=== PATIENT | male | born 1970 | race African-American/Black ===

== ENCOUNTER 2023-04-23 12:06 | Inpatient (IN) | payer OTHER, SELFPAY ==
[2023-04-23] VITALS (32 sets, daily range): BP systolic 133–194; BP diastolic 87–111; PULSE 75–98; RESP 10–20; TEMP 35.8–36.2; O2SAT 95–100; BMI 29.6
--- NOTE | ~2023-04-23 | XR_ITS ---
Clinical Indication: Chest pain AP and lateral views of the chest: Comparison: None Findings: The lungs are clear, without evidence of focal consolidation or pleural effusion. Cardiome diastinal silhouette is within normal limits. Bones and soft tissues are unremarkable. Impression: Normal chest. Reviewed, dictated and finalized at location . [employer] Impression: Normal chest.
--- NOTE | 2023-04-23 12:07 | ECG_ITS ---
Measurements Intervals [place] Rate: 81 P: 54 ID: [id number] QRS: -12 QRSD: 93 T: 24 QT: 375 QTc: 435 Interpretive Statements SINUS RHYTHM VOLTAGE CRITERIA FOR LVH BORDERLINE ECG NO PREVIOUS ECG AVAILABLE FOR COMPARISON Electronically Signed On 04-23-2023 12:54:47 [employer] by Luis Gauthier D.O.
--- NOTE | 2023-04-23 12:40 | ED.CHESTPAIN ---
HPI - Chest Pain General Chief Complaint: Chest Pain Stated Complaint: chest pain Time Seen by Provider: 04/23/23 12:35 Source: patient Limitations: no limitations History of Present Illness HPI narrative: This is a 53 year old who presents with complaint of chest pain that awoke him from his sleep between 6:30 and 6:45. He states his entire chest is tight. This has never happened before. No cardiac history. He denies SOB, nausea, vomiting, palpitations, fevers, cough, diaphoresis. He said it initially felt like gas. Describes it as a pressure/tightness that radiates across his chest initially and now down his ribs. 7/10 in severity and constant. It is not positional. He has never smoked. No family history of VA. Does not have diabetes. Was told he has high cholesterol but not on meds. No Hx of hypertension. Related Data Home Medications Medication Instructions Recorded Confirmed sildenafil 25 mg tablet (Viagra) 25 mg PO DAILY PRN Erectile 04/23/23 04/23/23 Dysfunction Allergies Allergy/AdvReac Type Severity Reaction Status Date / Time No Known Allergies Allergy Verified 04/23/23 12:41 [facility] Past Medical History Medical History (Updated 04/24/23 @ 20:01 by Nessa Smith MD) Erectile dysfunction On Viagra. Social History Social History (Updated 04/24/23 @ 00:26 by Cely Brooke APRN) Social History: Currently lives in home, daughter and granddaughter live with him. Surrogate decisionmaker: Jamel Chavarria, brother. Code status: Full code. Smoking status: Never smoker Alcohol intake: current Drinks per week: 14 Substance use: current Substance use type: marijuana Last use: 03-23-2023 Lack of Transportation: No Lack of Food: Never True Current Housing: I Have Housing Concerned About Future Housing: No Difficulty Paying Gas/Electric Bills: No Difficulty Paying for Meds: No Currently Unemployed: No Education: Associate Degree Difficulty w/ Childcare or Family Care: No Spiritual care concerns: No Exam Narrative: GENERAL: Well-appearing, well-nourished, and in no acute distress. HEAD: Normocephalic, atraumatic. EYES: EOMI, no photophobia. ENT: Nares clear, no rhinorrhea or epistaxis. Mucous membranes moist. NECK: Supple. CHEST: Clear to auscultation. No respiratory distress. HEART: Regular rate and rhythm. No murmur heard. Normal peripheral pulses +2 radially. ABDOMEN: Soft, nontender, nondistended. EXTREMITIES: Normal range of motion. No edema. SKIN: Warm, dry, no rash. NEURO: No focal deficits. Alert and oriented x3. PSYCH: Normal mood and affect. Course Vital Signs Vital signs: Vital Signs Temperature 96.5 F L 04/23/23 12:13 Pulse Rate 85 04/23/23 12:13 Respiratory Rate 18 04/23/23 12:13 Blood Pressure 145/96 H 04/23/23 12:13 Pulse Oximetry 98 04/23/23 12:13 Oxygen Delivery Room Air 04/23/23 12:13 Temperature 97.7 F 04/24/23 12:00 Pulse Rate 88 04/24/23 18:00 Respiratory Rate 16 04/24/23 17:07 Blood Pressure 117/83 04/24/23 17:07 Pulse Oximetry 94 04/24/23 17:07 Oxygen Delivery Room Air 04/24/23 16:00 MDM - Chest Pain MDM Narrative Medical decision making narrative: Patient presents with CP that awoke him from sleep between 6:30 and 6:45. NO associated symptoms and no history. EKG is normal. Initial troponin is very elevated. Aspriin ordered. Risk factors include: high cholesterol (though not on meds). Had been told blood pressure was borderline but not rajat hypertension. Not on meds for either HTN or HLD. He is not obese, is a never smoker, has no positive family history of CVD, no personal history of atherosclerotic disease, no prior VA/PCI/CABG, no prior CVA or TIA, and no history of peripheral artery disease. HEART score = (+1 age, +2 initial troponin >3x normal limit, +1 for 1 risk factor) = 4 which makes patient high risk with a 12 to 65% 30-day MACE Discussed patient
[2023-04-23] MEDS: ASPIRIN 81 MG CHEWABLE TABLET 324 MG PO (12:42)
--- NOTE | 2023-04-23 12:43 | PC.NURSE ---
Pt to XRAY via stretcher at this time.
[2023-04-23 12:57] LABS: Basophils Absolute Auto 0.1 K/mm3 (0.0-0.1); Basophils Percent Auto 0.6 % (0.2-1.2); Eosinophils Absolute Auto 0.3 K/mm3 (0-0.3); Eosinophils Percent Auto 3.4 % (0-4.4); Hematocrit 46.9 % (42.0-52.0); Hemoglobin 14.5 g/dL (14.0-18.0); Immature Granulocyte Absolute 0.04 K/mm3 (0.00-0.031); Immature Granulocyte Percent A 0.5 % (0-0.5); Lymphocytes Absolute Auto 2.14 K/mm3 (0.9-3.2); Lymphocytes Percent Auto 24.4 % (18.3-44.2); Mean Corpuscular HGB Conc 30.9 g/dl (32-36); Mean Corpuscular Hemoglobin 23.7 pg (26-34); Mean Corpuscular Volume 76.6 fl (80-100); Mean Platelet Volume 10.8 fl (7.4-10.4); Monocytes Absolute Auto 1.1 K/mm3 (0.1-0.6); Monocytes Percent Auto 12.9 % (2.6-8.5); Neutrophils Absolute Auto 5.1 K/mm3 (1.3-6.7); Neutrophils Percent Auto 58.2 % (45.5-73.1); Platelet Count Result 228 k/mm3 (150-375); Red Blood Count 6.12 M/mm3 (4.6-6.20); Red Cell Distribution Width 17.9 % (11.5-14.5); White Blood Count 8.8 K/mm3 (4.5-10.0)
[2023-04-23 13:08] LABS: Partial Thromboplastin Time 28.3 SECONDS (22.3-36.8)
[2023-04-23 13:09] LABS: Alanine Aminotransferase 34 U/L (6-50); Albumin Level 4.6 g/dL (3.5-5.1); Alkaline Phosphatase 64 U/L (38-126); Anion Gap 9 mmol/L (8-16); Aspartate Amino Transferase 35 U/L (17-59); Bilirubin,Total 0.7 mg/dL (0.2-1.3); Blood Urea Nitrogen 10 mg/dL (9-20); Calcium 9.8 mg/dL (8.4-10.2); Carbon Dioxide 26 mmol/L (22-30); Chloride 105 mmol/L (98-107); Estimated CRCL calculation 100 ml/min; Estimated Glomerular Filt Rate > 60; Glucose 103 mg/dL (65-110); Lipase 150 U/L (23-300); Sodium 140 mmol/L (137-145)
[2023-04-23 13:23] LABS: Troponin I 0.449 ng/mL (0.000-0.034)
[2023-04-23] MEDS: HEPARIN SODIUM 5,000 UNITS/ML VIAL 4000 UNITS IV PUSH (15:05)
[2023-04-23] MEDS: HEPARIN SOD/D5W 100 UNITS/ML 25,000 UNITS/250 ML BAG 8 UNITS IV CONT (15:06)
[2023-04-23 15:18] LABS: LDL Cholesterol Direct 100 mg/dL
[2023-04-23 15:48] LABS: HDL Direct 48 mg/dL; Triglycerides 329 mg/dL (<150)
--- NOTE | 2023-04-23 16:38 | PM.IMHP ---
H&P: HPI History of Present Illness Date/Time: 04/23/23 16:38 Chief Complaint: Chest Pain Narrative: 53 y/o M presents here with CP with no PMH. Patient reports that he was awoken from sleep due to midsternal chest pain this morning at 6:00 a.m. describes chest pain as midsternal/upper chest, 7/10, nonradiating, and felt like pressure/tightness. Pain is constant. No associated nausea, vomiting, diaphoresis, or shortness of breath. Pain would worsen with shifting positions or activity such as walking to the restroom. No alleviating factors. Tried Tums and Pepcid, no resolution of pain. After arrival to the ED, given full dose of aspirin with subsequent resolution of chest pain. denies any current chest pain or shortness of breath. Denies any medical history, questionable high cholesterol but is not treated for this. Currently hypertensive, 148/106. Denies any dizziness, blurred vision, or headaches. No family history of early heart disease. Review of Systems Review of Systems: All systems reviewed & are unremarkable except as noted in HPI and below PMFSH Past Medical History Medical History (Updated 04/24/23 @ 00:30 by Cely Brooke APRN) Erectile dysfunction On Viagra. Social History Social History (Updated 04/24/23 @ 00:26 by Cely Brooke APRN) Social History: Currently lives in home, daughter and granddaughter live with him. Surrogate decisionmaker: Jamel Chavarria, brother. Code status: Full code. Smoking status: Never smoker Alcohol intake: current Drinks per week: 14 Substance use: current Substance use type: marijuana Last use: 03-23-2023 Lack of Transportation: No Lack of Food: Never True Current Housing: I Have Housing Concerned About Future Housing: No Difficulty Paying Gas/Electric Bills: No Difficulty Paying for Meds: No Currently Unemployed: No Education: Associate Degree Difficulty w/ Childcare or Family Care: No Spiritual care concerns: No Meds Home Medications and Allergies Home Medications Medication Instructions Recorded Confirmed Type sildenafil 25 mg tablet (Viagra) 25 mg PO DAILY PRN Erectile 04/23/23 04/23/23 History Dysfunction Allergies Allergy/AdvReac Type Severity Reaction Status Date / Time No Known Allergies Allergy Verified 04/23/23 12:41 Vital Signs Vital Signs - 24 hr 11/09/23 12:13 04/23/23 12:32 04/23/23 12:32 Temperature 96.5 F L Pulse Rate 85 79 75 Respiratory Rate 18 18 Blood Pressure 145/96 H 151/109 H Pulse Oximetry 98 97 Oxygen Delivery Room Air 04/23/23 14:31 04/23/23 15:09 04/23/23 16:12 Temperature Pulse Rate 85 86 84 Respiratory Rate 18 15 20 Blood Pressure 148/106 H 148/106 H 146/106 H Pulse Oximetry 95 98 97 Oxygen Delivery Exam Const: General: comfortable and no acute distress HENMT: Face/Nose/Sinus: Normal nares present Mouth: Yes moist mucous membranes Eyes: General: appearance normal, both eyes and all related structures Sclera: sclerae normal Pupils: Equal, round and reactive pupils present Resp: Effort & Inspection: normal respiratory effort Auscultation: clear to auscultation bilaterally Cardio: Rate: regular rate Rhythm: regular rhythm Other: S1-S2 present without murmur, rub, ectopy GI: GI Palp: Yes Soft to palpation Auscultation: normal bowel sounds Skin: General skin exam: normal color and no rashes or lesions noted Wounds: no wounds Neuro: Speech: normal speech Motor exam (neuro): 5/5 motor strength present throughout Sensory Exam: normal sensation Other: A/Ox4 Extrem: General: normal to inspection Psych: Mental Status: mental status grossly normal Affect: normal affect Other: Good insight and judgment, pleasant. H&P: Results Labs Labs: Short CBC 04/23/23 Range/Units 12:41 WBC 8.8 (4.5-10.0) K/mm3 Hgb 14.5 (14.0-18.0) g/dL Hct 46.9 (42.0-52.0) % Plt Count 228 (150-3
--- NOTE | 2023-04-23 17:31 | PC.NURSE ---
This RN called dietary and ordered dinner tray for pt at this time.
[2023-04-23 17:57] LABS: Cholesterol 386 mg/dL (0-200)
--- NOTE | 2023-04-23 19:23 | PC.NURSE ---
This RN assumed care of patient. THis RN took patient report from RADHA Chow.
--- NOTE | 2023-04-23 20:38 | ECG_ITS ---
Measurements Intervals [place] Rate: 84 P: 29 CO: 188 QRS: -16 QRSD: 86 T: 26 QT: 380 QTc: 451 Interpretive Statements SINUS RHYTHM VOLTAGE CRITERIA FOR LVH BORDERLINE ECG COMPARED TO ECG 04/23/2023 12:10:46 NO SIGNIFICANT CHANGES Electronically Signed On 04-23-2023 18:47:37 SOCIAL MEDIA INTERN by Luis Gauthier D.O.
[2023-04-23 20:41] LABS: Partial Thromboplastin Time 57.1 SECONDS (22.3-36.8)
[2023-04-23] MEDS: HEPARIN SODIUM 5,000 UNITS/ML VIAL 2500 UNITS IV PUSH (21:12)
--- NOTE | 2023-04-23 21:47 | ADMGEN ---
This patient, Walter Chavarria, was admitted to IMU Room 207-01. Patient/family oriented to hospital policies and general routines including ID bracelet, bed and alarms, visiting hours, pain management, procedures, bathroom and other care routines, personal items, smoking policy, room service/diet, and visiting hours. Information on how to activate the Rapid Response Team has been discussed. Patient/Family are encouraged to report perceived risks to care and to ask questions if they do not understand what they are told or what they should do.
[2023-04-23] MEDS: ATORVASTATIN 40 MG TABLET 80 MG PO (23:30)
[2023-04-23] MEDS: carvediloL 1.56 MG TABLET PO (23:31)
[2023-04-24] VITALS (24 sets, daily range): BP systolic 117–140; BP diastolic 82–98; PULSE 77–91; RESP 12–18; TEMP 36.1–36.6; O2SAT 93–99
[2023-04-24 03:06] LABS: Basophils Absolute Auto 0.1 K/mm3 (0.0-0.1); Basophils Percent Auto 0.6 % (0.2-1.2); Eosinophils Absolute Auto 0.3 K/mm3 (0-0.3); Eosinophils Percent Auto 3.3 % (0-4.4); Hematocrit 46.3 % (42.0-52.0); Hemoglobin 14.4 g/dL (14.0-18.0); Immature Granulocyte Absolute 0.06 K/mm3 (0.00-0.031); Immature Granulocyte Percent A 0.6 % (0-0.5); Lymphocytes Absolute Auto 3.09 K/mm3 (0.9-3.2); Lymphocytes Percent Auto 30.6 % (18.3-44.2); Mean Corpuscular HGB Conc 31.1 g/dl (32-36); Mean Corpuscular Hemoglobin 23.8 pg (26-34); Mean Corpuscular Volume 76.5 fl (80-100); Mean Platelet Volume 10.3 fl (7.4-10.4); Monocytes Absolute Auto 1.4 K/mm3 (0.1-0.6); Monocytes Percent Auto 13.4 % (2.6-8.5); Neutrophils Absolute Auto 5.2 K/mm3 (1.3-6.7); Neutrophils Percent Auto 51.5 % (45.5-73.1); Platelet Count Result 238 k/mm3 (150-375); Red Blood Count 6.05 M/mm3 (4.6-6.20); Red Cell Distribution Width 17.6 % (11.5-14.5); White Blood Count 10.1 K/mm3 (4.5-10.0)
[2023-04-24 03:18] LABS: Alanine Aminotransferase 31 U/L (6-50); Albumin Level 4.1 g/dL (3.5-5.1); Alkaline Phosphatase 66 U/L (38-126); Anion Gap 6 mmol/L (8-16); Aspartate Amino Transferase 36 U/L (17-59); Bilirubin,Total 0.7 mg/dL (0.2-1.3); Blood Urea Nitrogen 11 mg/dL (9-20); Calcium 9.5 mg/dL (8.4-10.2); Carbon Dioxide 28 mmol/L (22-30); Chloride 104 mmol/L (98-107); Estimated CRCL calculation 89 ml/min; Estimated Glomerular Filt Rate > 60; Glucose 114 mg/dL (65-110); Potassium 3.5 mmol/L (3.4-5.0); Sodium 138 mmol/L (137-145)
[2023-04-24 03:23] LABS: Partial Thromboplastin Time 83.2 SECONDS (22.3-36.8)
[2023-04-24] MEDS: carvediloL 6.25 MG TABLET PO (09:12)
[2023-04-24] MEDS: ASPIRIN 81 MG CHEWABLE TABLET PO (09:13)
[2023-04-24 09:40] LABS: Partial Thromboplastin Time 68.1 SECONDS (22.3-36.8)
[2023-04-24] MEDS: HEPARIN SODIUM 5,000 UNITS/ML VIAL 2500 UNITS IV PUSH (10:49)
--- NOTE | 2023-04-24 11:15 | PM.CNCAR ---
Assessment and Plan Assessment and plan (1) NSTEMI (non-ST elevated myocardial infarction): Code(s): I21.4 - Non-ST elevation (NSTEMI) myocardial infarction Status: Acute Plan This is a 53-year-old man without prior history of heart disease he has really minimal if any coronary risk factors he states that his physician has told him that his blood pressure and cholesterol may be slightly elevated but not to worry medical treatment of any of this was recommended he now presents with acute coronary syndrome and troponin levels indicating non ST-elevation [place]. Recommended proceeding with coronary angiography today. The procedure its risks and details as well as alternatives of conservative medical treatment were explained to the patient he understands all of this and is agreeable with this plan. Lion Mcleod MD [facility] History of Present Illness History of Present Illness Consult date/time: 04/24/23 11:15 Reason For Visit: nstemi Narrative: This is a very pleasant 53-year-old man I am seeing at the request of the hospitalist because of non ST elevation RI. The patient is unknown to me prior to this consultation. He reports really a lack of any prior medical problems of significance and has been enjoying rather good health. He stated that yesterday or in the evening before yesterday he started to experience some chest pain that raised concern on his part. He was awakened from sleep and had a central pressure likes chest pain that at times radiated to the left and the right side of the chest. It did not radiate any other location in his body there was no associated diaphoresis nausea vomiting or emesis. He tried to take some Tums for for this thinking he had a problem with dyspepsia he had no relief and eventually came to the emergency room for evaluation. His electrocardiograms in the emergency room showed sinus rhythm without any significant ST segment elevation or depression. His troponin levels were sampled were slightly elevated he then was heparinized and admitted to the hospital. He says that since yesterday afternoon being in the hospital he has generally felt well but he has some very mild waxing and waning of central heaviness in his chest he is currently not having any of this. His troponin levels jeri significantly to 1.9 and I have been asked to see him in consultation in that setting. He has been given aspirin beta-blockers and statins and offers no other complaints. Review of Systems Constitutional: Constitutional: Reports no additional constitutional complaints Eyes: Eyes: Reports no additional eye complaints ENT: Reports system reviewed and no additional complaints, except as documented Cardiovascular: Cardiovascular: Reports as per HPI Respiratory: Respiratory: Reports no additional respiratory complaints Gastrointestinal: Gastrointestinal: Reports no additional gastrointestinal complaints Musculoskeletal: Musculoskeletal: Reports no additional musculoskeletal complaints Integumentary/Breasts: Skin/Breast: Reports system reviewed and no additional complaints, except as docu Neurologic: Reports system reviewed and no additional complaints, except as documented Endocrine: Endocrine: Reports no additional endocrine complaints Hematologic/Lymphatic: Hematologic/Lymphatic: Reports no additional hematologic/lymphatic complaints Allergic/Immunologic: Allergic/Immunologic: Reports no additional allergic/immunologic complaints PMFSH Past Medical History Medical History (Updated 04/24/23 @ 00:30 by Cely Brooke APRN) Erectile dysfunction On Viagra. Social History Social History (Updated 04/24/23 @ 00:26 by Cely Brooke APRN) Social History: Currently lives in home, daughter and granddaughter live with him. Surrogate decisionmaker: Jamel Chavarria, brother. Code status: Full code. Smoking status: Never smoker Alcohol intake: current Drinks per week: 14 Substance use:
--- NOTE | 2023-04-24 13:40 | WPDMODSED ---
Moderate Sedation Note-Pt Data Patient Data Diagnosis: non ST-elevation [place] Present Complaint: intermittent chest pain Procedure to be performed/Plan: left heart catheterization Allergies Allergy/AdvReac Type Severity Reaction Status Date / Time No Known Allergies Allergy Verified 04/23/23 12:41 Home Medications Medication Instructions Recorded Confirmed Type sildenafil 25 mg tablet (Viagra) 25 mg PO DAILY PRN Erectile 04/23/23 04/23/23 History Dysfunction Current Medications: Active Medications Acetaminophen (Acetaminophen 325 Mg Tablet) 650 mg PO Q4H PRN PRN Reason: Mild Pain (1-3) Al Hydrox/Mg Hydrox/Simethicone (Mag Hydrox/Al Hydrox/Simeth 30 Ml Udc) 30 ml PO Q6H PRN PRN Reason: Indigestion Aspirin (Aspirin 81 Mg Chewable Tablet) 81 mg PO DAILY@0800 [facility] Last Admin: 04/24/23 09:13 Dose: 81 mg Atorvastatin Calcium (Atorvastatin 40 Mg Tablet) 80 mg PO HS [facility] Last Admin: 04/23/23 23:30 Dose: 80 mg Carvedilol (Carvedilol 6.25 Mg Tablet) 6.25 mg PO Q12HR [facility] Last Admin: 04/24/23 09:12 Dose: 6.25 mg Heparin Sodium (Porcine) (Heparin Sodium 5,000 Units/Ml Vial) 4,000 units IV PUSH PRN PRN PRN Reason: aPTT less than 55 seconds Last Admin: 04/23/23 15:05 Dose: 4,000 units Heparin Sodium (Porcine) (Heparin Sodium 5,000 Units/Ml Vial) 2,500 units IV PUSH PRN PRN PRN Reason: aPTT 55 - 70 seconds Last Admin: 04/24/23 10:49 Dose: 2,500 units Heparin Sodium/Dextrose (Heparin Sodium/D5w 100 Units/Ml) 25,000 units in 250 mls @ 10 mls/hr IV CONT .Q24H JAMEL; Protocol Last Titration: 04/24/23 10:49 Dose: 1,000 units/hr, 10 mls/hr Nitroglycerin (Nitroglycerin Sl 0.4 Mg Tablet) 0.4 mg SUBLINGUAL Q5MIN PRN PRN Reason: Chest Pain Ondansetron HCl (Ondansetron Inj 4 Mg/2 Ml Vial) 4 mg IV PUSH Q6H PRN PRN Reason: Nausea And Vomiting Sedation/Anesthesia: No previous sedation/anesthesia problems (including family history). [facility] Past Medical History Medical History (Updated 04/24/23 @ 00:30 by Cely Brooke APRN) Erectile dysfunction On Viagra. Social History Social History (Updated 04/24/23 @ 00:26 by Cely Brooke APRN) Social History: Currently lives in home, daughter and granddaughter live with him. Surrogate decisionmaker: Jamel Chavarria, brother. Code status: Full code. Smoking status: Never smoker Alcohol intake: current Drinks per week: 14 Substance use: current Substance use type: marijuana Last use: 03-23-2023 Lack of Transportation: No Lack of Food: Never True Current Housing: I Have Housing Concerned About Future Housing: No Difficulty Paying Gas/Electric Bills: No Difficulty Paying for Meds: No Currently Unemployed: No Education: Associate Degree Difficulty w/ Childcare or Family Care: No Spiritual care concerns: No Mod Sed Physical Exam Physical Exam Pre Procedural Exam: Normal: Appearance, Neck, Throat, Airway, Lungs, Heart Size, Heart Rate, Heart Rhythm, Neuro Exam and Extremities Hours since solid foods: 12 Hours since liquid intake: 12 Mallampati Classification: class II Internal Medicine - PN: Obj Da Vital Signs Vital Signs: Vital Signs - 24 hr 04/23/23 14:31 04/23/23 15:09 04/23/23 16:12 Temperature Pulse Rate 85 86 84 Respiratory Rate 18 15 20 Blood Pressure 148/106 H 148/106 H 146/106 H Pulse Oximetry 95 98 97 Oxygen Delivery 04/23/23 17:04 04/23/23 17:37 04/23/23 14:09 Temperature Pulse Rate 92 96 88 Respiratory Rate 17 15 16 Blood Pressure 148/102 H 133/102 H Pulse Oximetry 97 100 97 Oxygen Delivery 04/23/23 15:22 04/23/23 15:30 04/23/23 15:45 Temperature Pulse Rate 87 79 88 Respiratory Rate 17 15 14 Blood Pressure Pulse Oximetry 100 97 98 Oxygen Delivery 04/23/23 17:48 04/23/23 18:00 04/23/23 18:15 Temperature Pulse Rate 87 92 89 Respiratory Rate 17 18 16 Blood Pressure Pulse Oximetry 98 100 98 Oxygen Delivery
--- NOTE | 2023-04-24 14:09 | P.PCNCC_ITS ---
Cardiac Cath Procedure Note Date of procedure:: 04/24/23 Performing physician:: Lion Mcleod MD Indication:: acute coronary syndrome Brief clinical history:: this is a 53-year-old man without previous cardiac history who experienced an episode of chest tightness yesterday he came to the hospital for evaluation his electrocardiogram was essentially unremarkable his troponin levels however jeri moderately to 1.9 prompting recommendation for angiography today. He reports a history of modestly elevated blood pressure and mildly elevated cholesterol. He is not diabetic and is a lifelong nonsmoker Procedure Procedure performed:: left ventriculography coronary angiography Angio-Seal to right femoral artery Sedation/Medication given:: fentanyl 50 mg Versed 2 mg case start time Access site:: right femoral artery Estimated blood loss:: 25 cc Procedure note:: patient was brought to the cardiac catheterization lab in postabsorptive state where the right femoral triangle was prepared and draped in the usual fashion. Anesthesia was provided with 1% lidocaine infiltrated locally. Using the modified Seldinger technique a 5 [place] sheath was placed into the right common femoral artery after this left heart catheterization was carried out. I used a 5 [place] angled pigtail catheterization her to measure left-sided hemodynamics and to inject LV g in the 30 degree CHOI projection. Following this I used a 5 [place] FL4 catheter to engage and inject the left coronary artery in multiple projections. Lastly a 5 [place] JR4 catheter was used to engage inject the right coronary artery in orthogonal projections. The femoral artery was then studied with an angiogram through the sheath. A 6 [place] Angio-Seal device was deployed with a good hemostatic result. He tolerated the procedure well there were no apparent complications he left the director of cardiac cath lab with no evidence of groin hematoma. Findings:: Hemodynamics: Central aortic pressure is 122 over 76 left ventricle 122/0 end-diastolic 10 there is no gradient across the aortic upon pullback. Left ventricle: The LV is normal in size. The tiny apical segment of the LV is hypodynamic the remainder of the LV is normal in appearance and contracts well without any other wall motion abnormalities ejection fraction is 60% by visual estimation the left main coronary artery is unremarkable and widely patent the left anterior descending is a large to medium caliber artery extending down to the apex the LAD and its branches are smooth and angiographically normal in appearance the circumflex is a medium caliber giving rise to the circ marginal branches. The circumflex system is also smooth and angiographically free of disease. The right coronary artery is medium in caliber dominant to the posterior circulation the right coronary artery is smooth and angiographically free of disease. Conclusion:: 1. Right coronary dominant circulation with no angiographic abnormalities 2. very small amount of apical hypokinesia with overall normal ejection fraction Lion Mcleod MD [facility]
--- NOTE | 2023-04-24 14:14 | PM.PNCARD ---
Progress Note: A&P Assessment and Plan (1) NSTEMI (non-ST elevated myocardial infarction): Code(s): I21.4 - Non-ST elevation (NSTEMI) myocardial infarction Status: Acute Plan 53-year-old man with episode of chest pain, modest system moderate troponin rise but catheterization demonstrating angiographically nondiseased coronary arteries. He does have apical akinesia on his left ventricle therefore the most likely diagnosis appears to be coronary spasm event. I will discontinue his aspirin and beta-michael and start a modest dose of amlodipine for presumptive diagnosis of coronary spasm. I would go ahead and leave him on the atorvastatin as his cholesterol apparently is rather high with does not have atherosclerotic disease. Lion Mcleod MD [facility] Subjective Date/time seen: date of service:04/24/23 14:14 Interval history: 53-year-old man with: Episode of chest pain moderate rise in troponin levels. Presumptive diagnosis of ACS / non ST elevation CT. Left heart catheterization done a short time ago demonstrates no angiographic evidence of coronary artery disease. There is a small region of hypokinesia / akinesia at the apex ventricle. Overall ejection fraction is normal. Most likely diagnosis therefore is coronary spasm since he did have a event clinically, with troponin level elevation and a wall motion abnormality but without any angiographic evidence of coronary artery disease. Will treat this with calcium channel michael therapy. Exam Const: General: comfortable and no acute distress HENMT: Mouth: Yes moist mucous membranes Eyes: Sclera: sclerae normal Neck: Neck: supple and no JVD Other: Carotid arteries unremarkable bilateral Resp: Effort & Inspection: normal respiratory effort Auscultation: clear to auscultation bilaterally Cardio: Rate: regular rate Rhythm: regular rhythm Other: no murmur no gallop GI: GI Palp: Yes Soft to palpation Auscultation: normal bowel sounds Skin: General skin exam: normal color Neuro: Other: alert and oriented x3 Extrem: Other: unremarkable normal pulses, no edema Objective Data Vital Signs Vital Signs: Vital Signs - 24 hr 04/23/23 14:31 04/23/23 15:09 04/23/23 16:12 Temperature Pulse Rate 85 86 84 Respiratory Rate 18 15 20 Blood Pressure 148/106 H 148/106 H 146/106 H Pulse Oximetry 95 98 97 Oxygen Delivery 04/23/23 17:04 04/23/23 17:37 04/23/23 15:22 Temperature Pulse Rate 92 96 87 Respiratory Rate 17 15 17 Blood Pressure 148/102 H 133/102 H Pulse Oximetry 97 100 100 Oxygen Delivery 04/23/23 15:30 04/23/23 15:45 04/23/23 17:48 Temperature Pulse Rate 79 88 87 Respiratory Rate 15 14 17 Blood Pressure Pulse Oximetry 97 98 98 Oxygen Delivery 04/23/23 18:00 04/23/23 18:15 04/23/23 18:16 Temperature Pulse Rate 92 89 95 Respiratory Rate 18 16 19 Blood Pressure 153/111 H Pulse Oximetry 100 98 98 Oxygen Delivery 04/23/23 18:30 04/23/23 18:45 04/23/23 19:00 Temperature Pulse Rate 89 98 98 Respiratory Rate 12 15 16 Blood Pressure Pulse Oximetry 99 98 97 Oxygen Delivery 04/23/23 19:01 04/23/23 19:15 04/23/23 19:30 Temperature Pulse Rate 98 95 87 Respiratory Rate 14 12 10 L Blood Pressure 194/102 H Pulse Oximetry 98 98 99 Oxygen Delivery 04/23/23 19:45 04/23/23 19:46 04/23/23 20:00 Temperature Pulse Rate 90 86 92 Respiratory Rate 18 20 14 Blood Pressure 158/105 H Pulse Oximetry 99 99 Oxygen Delivery 04/23/23 20:15 04/23/23 21:32 04/23/23 21:58 Temperature 36.2 C L Pulse Rate 80 84 81 Respiratory Rate 13 16 Blood Pressure 149/98 H 152/100 H Pulse Oximetry 97 99 99 Oxygen Delivery 04/23/23 22:00 04/23/23 22:00 04/23/23 23:28 Temperature 36.1 C L Pulse Rate 88 91 Respiratory Rate 16 Blood Pressure 135/87 Pulse Oximetry 100 Oxygen Delivery Room Air 04/23/23 23:31 04/24/23
[2023-04-24] MEDS: SODIUM CHLORIDE 0.9% IV 1,000 ML 125 ML IV CONT (15:32)
--- NOTE | 2023-04-24 17:25 | PM.IMPN ---
Progress Note: A&P Assessment and Plan (1) NSTEMI (non-ST elevated myocardial infarction): Code(s): I21.4 - Non-ST elevation (NSTEMI) myocardial infarction Status: Acute Plan Problem List 1. NSTEMI EKG SINUS RHYTHM VOLTAGE CRITERIA FOR LVH BORDERLINE ECG NO PREVIOUS ECG AVAILABLE FOR COMPARISON Repeat EKG post-second trop SINUS RHYTHM VOLTAGE CRITERIA FOR LVH BORDERLINE ECG COMPARED TO ECG 04/23/2023 12:10:46 NO SIGNIFICANT CHANGES CXR: Normal chest. trops: 0.449 -> 1.130 -> 1.760 Heparin gtt, monitor coags NPO until procedure Start daily aspirin 81 mg, 324 mg today SL nitro prn Zofran p.r.n. GI cocktail p.r.n. monitor daily labs start atorvastatin 80 mg PO daily. lipid panel -triglycerides 329, cholesterol 386. Normal LDL and HDL start carvedilol 6.25 mg BID, currently hypertensive echo ordered for cardiac cath today Cardiology on board Home Meds/Chronic Conditions - ED: hold Viagra Diet: NPO GI Prophylaxis: GI cocktail prn DVT Prophylaxis: SCDs, heparin gtt Lines: pIV Code Status: Full Code Subjective Date/time seen: 04/24/23 17:25 Interval history: 53-year-old man with: Episode of chest pain moderate rise in troponin levels. Presumptive diagnosis of ACS / non ST elevation [place]. Left heart catheterization done a short time ago demonstrates no angiographic evidence of coronary artery disease. There is a small region of hypokinesia / akinesia at the apex ventricle. Overall ejection fraction is normal. Most likely diagnosis therefore is coronary spasm since he did have a event clinically, with troponin level elevation and a wall motion abnormality but without any angiographic evidence of coronary artery disease. Will treat this with calcium channel michael therapy. For cardiac cath today Review of Systems Review of Systems: All systems reviewed & are unremarkable except as noted in HPI and below Exam Const: General: comfortable and no acute distress HENMT: Face/Nose/Sinus: Normal nares present Mouth: Yes moist mucous membranes Eyes: General: appearance normal, both eyes and all related structures Sclera: sclerae normal Pupils: Equal, round and reactive pupils present Resp: Effort & Inspection: normal respiratory effort Auscultation: clear to auscultation bilaterally Cardio: Rate: regular rate Rhythm: regular rhythm Other: S1-S2 present without murmur, rub, ectopy GI: Auscultation: normal bowel sounds Skin: General skin exam: normal color and no rashes or lesions noted Wounds: no wounds Neuro: Cranial nerves: Yes Equal, round and reactive pupils present Speech: normal speech Motor exam (neuro): 5/5 motor strength present throughout Sensory Exam: normal sensation Other: A/Ox4 Extrem: General: normal to inspection Psych: Mental Status: mental status grossly normal Affect: normal affect Other: Good insight and judgment, pleasant. Objective Data Vital Signs Vital Signs: Vital Signs - 24 hr 04/23/23 17:37 04/23/23 17:48 04/23/23 18:00 Temperature Pulse Rate 96 87 92 Respiratory Rate 15 17 18 Blood Pressure 133/102 H Pulse Oximetry 100 98 100 Oxygen Delivery 04/23/23 18:15 04/23/23 18:16 04/23/23 18:30 Temperature Pulse Rate 89 95 89 Respiratory Rate 16 19 12 Blood Pressure 153/111 H Pulse Oximetry 98 98 99 Oxygen Delivery 04/23/23 18:45 04/23/23 19:00 04/23/23 19:01 Temperature Pulse Rate 98 98 98 Respiratory Rate 15 16 14 Blood Pressure 194/102 H Pulse Oximetry 98 97 98 Oxygen Delivery 04/23/23 19:15 04/23/23 19:30 04/23/23 19:45 Temperature Pulse Rate 95 87 90 Respiratory Rate 12 10 L 18 Blood Pressure Pulse Oximetry 98 99 Oxygen Delivery 04/23/23 19:46 04/23/23 20:00 04/23/23 20:15 Temperature Pulse Rate 86 92 80 Respiratory Rate 20 14 13 Blood Pressure 158/105 H Pulse Oximetry 99 99 97 Oxygen Delivery 04/23/23
[2023-04-24] MEDS: ATORVASTATIN 40 MG TABLET 80 MG PO (21:14)
[2023-04-25] VITALS: PULSE 78; PULSE 80; RESP 18; O2SAT 98
[2023-04-25 02:00] VITALS: PULSE 78
[2023-04-25 03:55] VITALS: BP 131/82; PULSE 78; RESP 18; TEMP 36.4; O2SAT 99
[2023-04-25 04:00] VITALS: PULSE 78; PULSE 80; RESP 18; O2SAT 99
[2023-04-25 04:31] LABS: Basophils Percent Auto 0.5 % (0.2-1.2); Eosinophils Absolute Auto 0.3 K/mm3 (0-0.3); Hematocrit 45.3 % (42.0-52.0); Hemoglobin 14.3 g/dL (14.0-18.0); Immature Granulocyte Absolute 0.03 K/mm3 (0.00-0.031); Immature Granulocyte Percent A 0.3 % (0-0.5); Lymphocytes Percent Auto 25.1 % (18.3-44.2); Mean Corpuscular HGB Conc 31.6 g/dl (32-36); Mean Corpuscular Hemoglobin 24.1 pg (26-34); Mean Corpuscular Volume 76.4 fl (80-100); Mean Platelet Volume 10.7 fl (7.4-10.4); Monocytes Absolute Auto 1.2 K/mm3 (0.1-0.6); Monocytes Percent Auto 13.4 % (2.6-8.5); Neutrophils Absolute Auto 5.1 K/mm3 (1.3-6.7); Neutrophils Percent Auto 57.7 % (45.5-73.1); Platelet Count Result 235 k/mm3 (150-375); Red Blood Count 5.93 M/mm3 (4.6-6.20); Red Cell Distribution Width 17.2 % (11.5-14.5); White Blood Count 8.8 K/mm3 (4.5-10.0)
[2023-04-25 04:43] LABS: Alanine Aminotransferase 28 U/L (6-50); Albumin Level 3.7 g/dL (3.5-5.1); Alkaline Phosphatase 57 U/L (38-126); Anion Gap 5 mmol/L (8-16); Aspartate Amino Transferase 29 U/L (17-59); Bilirubin,Total 0.7 mg/dL (0.2-1.3); Blood Urea Nitrogen 9 mg/dL (9-20); Calcium 8.7 mg/dL (8.4-10.2); Carbon Dioxide 24 mmol/L (22-30); Chloride 108 mmol/L (98-107); Estimated CRCL calculation 89 ml/min; Estimated Glomerular Filt Rate > 60; Glucose 107 mg/dL (65-110); Potassium 3.9 mmol/L (3.4-5.0); Sodium 137 mmol/L (137-145)
[2023-04-25 05:41] VITALS: PULSE 82
[2023-04-25 07:54] VITALS: BP 120/91; PULSE 89; RESP 18; TEMP 36.5; O2SAT 97
[2023-04-25] MEDS: amLODIPine BESYLATE 5 MG TABLET PO (09:20)
--- NOTE | 2023-04-25 10:33 | PM.DS ---
DS: Admitting Diagnosis Discharge Date 04/25/23 Admitting Diagnosis Chest pain DS: Discharge Diagnosis Discharge Diagnosis (1) NSTEMI (non-ST elevated myocardial infarction): Code(s): I21.4 - Non-ST elevation (NSTEMI) myocardial infarction Status: Acute DS: Summary Hospital Course Hospital Course: #. NSTEMI: trops: 0.449 -> 1.130 -> 1.760 Started on heparin gtt, for protocol Started on aspirin and statin Lipid panel -triglycerides 329, cholesterol 386.? Normal LDL and HDL Cardiac catheterization: 04/24/2023: Angiographically normal coronary arteries. Mild apical akinesis she on left ventricle noted. Suspected coronary vasospasm. Added on calcium channel michael. Follow-up with cardiology Time Spent with Patient Time attestation: Total time spent providing and/or coordinating discharge services: 35 minutes Exam Narrative: GENERAL: The patient is well developed, not in acute distress HEENT: Nonicteric sclerae, PERRLA, EOMI. Oropharynx clear. Moist mucous membranes. Conjunctivae appear well perfused. CHEST: Chest wall is nontender. HEART: Regular rate and rhythm without murmur, rubs, or gallops LUNGS: Clear to auscultation bilaterally. no respiratory distress ABDOMEN: Soft, positive bowel sounds, non-tender, no organomegaly. SKIN: No rash, no excessive bruising, petechiae, or purpura. NEUROLOGIC: Cranial nerves II-XII intact, alert and oriented x 3, no gross motor deficits EXTREMITIES: no edema, cyanosis or clubbing DS: Data Data Completed and Pending Labs on day of discharge: Labs from last 24 hours 04/25/23 04:20 WBC 8.8 RBC 5.93 Hgb 14.3 Hct 45.3 MCV 76.4 L MCH 24.1 L MCHC 31.6 L RDW 17.2 H Plt Count 235 MPV 10.7 H Immature Gran % (Auto) 0.3 Neut % (Auto) 57.7 Lymph % (Auto) 25.1 [place] % (Auto) 13.4 H Eos % (Auto) 3.0 Baso % (Auto) 0.5 Lymph # (Auto) 2.20 [place] # (Auto) 1.2 H Eos # (Auto) 0.3 Baso # (Auto) 0.0 Abs Immat Gran (auto) 0.03 Absolute Neuts (auto) 5.1 Absolute Nucleated RBC 0.0 Nucleated RBC % 0.0 Sodium 137 Potassium 3.9 Chloride 108 H Carbon Dioxide 24 Anion Gap 5 L BUN 9 Creatinine 0.80 Estim Creat Clear Calc 89 Estimated GFR > 60 Glucose 107 Calcium 8.7 Total Bilirubin 0.7 AST 29 ALT 28 Alkaline Phosphatase 57 Total Protein 7.0 Albumin 3.7 Procedures/Treatments: Cardiac Cath Procedure Note Date of procedure:: 04/24/23 Performing physician:: Lion Mcleod MD Indication:: ?acute coronary syndrome Brief clinical history:: ?this is a 53-year-old man without previous cardiac history who experienced an episode of chest tightness yesterday he came to the hospital for evaluation his electrocardiogram was essentially unremarkable his troponin levels however jeri moderately to 1.9 prompting recommendation for angiography today.? He reports a history of modestly elevated blood pressure and mildly elevated cholesterol.? He is not diabetic and is a lifelong nonsmoker Procedure Procedure performed:: ?left ventriculography ?coronary angiography ?Angio-Seal to right femoral artery Sedation/Medication given:: ?fentanyl 50 mg ?Versed 2 mg ?case start time Access site:: ?right femoral artery Estimated blood loss:: ?25 cc Procedure note:: ?patient was brought to the cardiac catheterization lab in postabsorptive state where the right femoral triangle was prepared and draped in the usual fashion.? Anesthesia was provided with 1% lidocaine infiltrated locally.? Using the modified Seldinger technique a 5 Qatari sheath was placed into the right common femoral artery after this left heart catheterization was carried out.? I used a 5 Qatari angled pigtail catheterization her to measure left-sided hemodynamics and to inject LV g in the 30 degree CHOI projection.? Following this I used a 5 Q[place]ari FL4 catheter to engage and inject the left coronary artery in multiple projections.? Lastly a 5 Q[place]ari JR4 catheter was used to e
--- NOTE | 2023-04-25 10:36 | PM.PNCARD ---
Progress Note: A&P Assessment and Plan (1) NSTEMI (non-ST elevated myocardial infarction): Code(s): I21.4 - Non-ST elevation (NSTEMI) myocardial infarction Status: Acute Assessment and Plan: 53-year-old man with episode of chest pain, moderate troponin rise but catheterization demonstrating angiographically nondiseased coronary arteries.? He does have apical akinesia on his left ventricle therefore the most likely diagnosis appears to be coronary spasm event.? Discontinued his aspirin and beta-michael and started a modest dose of amlodipine for presumptive diagnosis of coronary spasm.? Continue atorvastatin as his cholesterol apparently is rather high. Okay to discharge home from a Cardiology standpoint. Will arrange for outpatient follow up with Dr. Mcleod. Recommendations/Plan discussed with Hospitalist. Subjective Date/time seen: 04/25/23 10:36 Interval history: Reason for visit: NSTEMI 53-year-old man with: Episode of chest pain moderate rise in troponin levels. Presumptive diagnosis of ACS / non ST elevation MA. Left heart catheterization done a short time ago demonstrates no angiographic evidence of coronary artery disease. There is a small region of hypokinesia / akinesia at the apex ventricle. Overall ejection fraction is normal. Most likely diagnosis therefore is coronary spasm since he did have a event clinically, with troponin level elevation and a wall motion abnormality but without any angiographic evidence of coronary artery disease. Will treat this with calcium channel michael therapy. Date of service 04/25: Doing well this morning. Review of Systems Review of Systems: All systems reviewed & are unremarkable except as noted in HPI and below (HPI) Exam Const: General: comfortable and no acute distress HENMT: Mouth: Yes moist mucous membranes Eyes: General: appearance normal, both eyes and all related structures Sclera: sclerae normal Neck: Neck: supple Resp: Effort & Inspection: normal respiratory effort Cardio: Rate: regular rate Rhythm: regular rhythm Skin: General skin exam: normal color Neuro: Speech: normal speech Psych: Mental Status: mental status grossly normal Affect: normal affect Objective Data Vital Signs Vital Signs: Vital Signs - 24 hr 04/24/23 12:00 04/24/23 12:00 04/24/23 12:00 Temperature 36.5 C Pulse Rate 90 86 Respiratory Rate 18 Blood Pressure 132/90 Pulse Oximetry 99 Oxygen Delivery Room Air 04/24/23 14:30 04/24/23 14:45 04/24/23 15:00 Temperature Pulse Rate 87 84 87 Respiratory Rate 16 14 16 Blood Pressure 128/94 H 129/93 H 117/89 Pulse Oximetry 94 93 94 Oxygen Delivery Room Air Room Air Room Air 04/24/23 15:15 04/24/23 15:30 04/24/23 15:37 Temperature Pulse Rate 86 84 84 Respiratory Rate 14 14 14 Blood Pressure 124/98 H 138/92 H 138/92 H Pulse Oximetry 93 93 93 Oxygen Delivery Room Air Room Air 04/24/23 16:07 04/24/23 16:00 04/24/23 16:00 Temperature Pulse Rate 83 85 Respiratory Rate 16 Blood Pressure 140/96 H Pulse Oximetry 97 98 Oxygen Delivery Room Air 04/24/23 17:07 04/24/23 18:00 04/24/23 19:00 Temperature 36.1 C L Pulse Rate 88 88 86 Respiratory Rate 16 16 Blood Pressure 117/83 131/92 H Pulse Oximetry 94 99 Oxygen Delivery 04/24/23 20:00 04/24/23 20:00 04/24/23 23:44 Temperature 36.4 C L 36.1 C L Pulse Rate 80 80 80 Respiratory Rate 16 16 18 Blood Pressure 138/95 H 123/84 Pulse Oximetry 98 98 98 Oxygen Delivery Room Air 04/24/23 20:00 04/24/23 22:00 04/25/23 00:00 Temperature Pulse Rate 82 77 80 Respiratory Rate 18 Blood Pressure Pulse Oximetry 98 Oxygen Delivery Room Air 04/25/23 00:00 04/25/23 02:00 04/25/23 03:55 Temperature 36.4 C L Pulse Rate 78 78 78 Respiratory Rate 18 Blood Pressure 131/82 Pulse Oximetry 99 Oxygen Delivery 04/25/23 04:00 04/25/23 04:00 04/25/23 05:41 Temperature Pulse Ra
== END 2023-04-25 10:36 | disposition home or self-care (01) | DRG 282 ==
LOC: ANHED 13:42 → ANHIMU 21:00
PROVIDERS: Emergency Medicine; Internal Medicine; Specialist; Student in an Organized Health Care Education/Training Program; Admitting Provider Internal Medicine; Emergency Provider Student in an Organized Health Care Education/Training Program; PCP Physician Assistant; Visit Provider Internal Medicine
PROC: 4A023N7 Measurement of Cardiac Sampling and Pressure, Left Heart, Percutaneous Approach (ICD-10-PCS; CPT 93452; principal; 2023-04-24 13:00)
PROC: 4A023N7 Measurement of Cardiac Sampling and Pressure, Left Heart, Percutaneous Approach (ICD-10-PCS; 2023-04-24 13:00)
DX: I21.4 Non-ST elevation (NSTEMI) myocardial infarction (principal); I20.1 Angina pectoris with documented spasm
CPT/HCPCS: 36415; 71046; 80053; 80061; 83690; 84484; 85025; 85610; 85730; 93005; 93458; 96365; 96366; 99285; A9270; C1760; C1887; C1894; G0269; J1644; J2250; J3010; J7030

== ENCOUNTER 2023-05-22 12:36 | Emergency (ER) | payer OTHER, SELFPAY ==
[2023-05-22] VITALS (7 sets, daily range): BP systolic 147–156; BP diastolic 89–104; PULSE 90–97; RESP 15–20; TEMP 36.4; O2SAT 96–100
--- NOTE | ~2023-05-22 | XR_ITS ---
EXAMINATION: XR chest 2V 05/22/2023 13:15 INDICATION: Left-sided chest pain PROCEDURE: 2 view chest COMPARISON: 04/23/2023 FINDINGS: The lungs are clear. The cardiomediastinal silhouette is within normal limits. There are no pleural effusions. There is no pneumothorax suspected. IMPRESSION: 1: NO ACUTE CARDIOPULMONARY DISEASE. Reviewed, dictated and finalized at location B. [employer]
--- NOTE | 2023-05-22 12:38 | ECG_ITS ---
Measurements Intervals [place] Rate: 94 P: 48 AK: 198 QRS: 4 QRSD: 83 T: 31 QT: 350 QTc: 439 Interpretive Statements SINUS RHYTHM COMPARED TO ECG 04/23/2023 16:17:36 NO SIGNIFICANT CHANGES Electronically Signed On 05-23-2023 13:05:28 ALLOCATIONS CLERK by Brannon Francisco M.D.
[2023-05-22 12:57] LABS: Basophils Absolute Auto 0.1 K/mm3 (0.0-0.1); Basophils Percent Auto 0.6 % (0.2-1.2); Eosinophils Absolute Auto 0.3 K/mm3 (0-0.3); Eosinophils Percent Auto 3.7 % (0-4.4); Hematocrit 47.5 % (42.0-52.0); Hemoglobin 14.7 g/dL (14.0-18.0); Immature Granulocyte Absolute 0.03 K/mm3 (0.00-0.031); Immature Granulocyte Percent A 0.3 % (0-0.5); Lymphocytes Percent Auto 24.6 % (18.3-44.2); Mean Corpuscular HGB Conc 30.9 g/dl (32-36); Mean Corpuscular Hemoglobin 23.6 pg (26-34); Mean Corpuscular Volume 76.4 fl (80-100); Mean Platelet Volume 10.4 fl (7.4-10.4); Monocytes Percent Auto 10.9 % (2.6-8.5); Neutrophils Absolute Auto 5.4 K/mm3 (1.3-6.7); Neutrophils Percent Auto 59.9 % (45.5-73.1); Platelet Count Result 250 k/mm3 (150-375); Red Blood Count 6.22 M/mm3 (4.6-6.20); Red Cell Distribution Width 17.4 % (11.5-14.5)
[2023-05-22 13:07] LABS: Prothrombin Time 13.3 Seconds (11.1-14.7)
[2023-05-22 13:08] LABS: Alanine Aminotransferase 41 U/L (6-50); Albumin Level 4.6 g/dL (3.5-5.1); Alkaline Phosphatase 98 U/L (38-126); Anion Gap 9 mmol/L (8-16); Aspartate Amino Transferase 35 U/L (17-59); Bilirubin,Total 0.7 mg/dL (0.2-1.3); Blood Urea Nitrogen 14 mg/dL (9-20); Calcium 9.3 mg/dL (8.4-10.2); Carbon Dioxide 26 mmol/L (22-30); Chloride 105 mmol/L (98-107); Estimated CRCL calculation 79 ml/min; Estimated Glomerular Filt Rate > 60; Glucose 102 mg/dL (65-110); Lipase 230 U/L (23-300); Partial Thromboplastin Time 28.3 SECONDS (22.3-36.8); Potassium 4.1 mmol/L (3.4-5.0); Sodium 140 mmol/L (137-145)
[2023-05-22 13:19] LABS: Troponin I < 0.012 ng/mL (0.000-0.034)
--- NOTE | 2023-05-22 16:04 | ECG_ITS ---
Measurements Intervals [place] Rate: 89 P: 30 ID: [id number] QRS: -6 QRSD: 84 T: 19 QT: 363 QTc: 443 Interpretive Statements SINUS RHYTHM VOLTAGE CRITERIA FOR LVH, CONSIDER NORMAL VARIANT Electronically Signed On 05-24-2023 10:13:40 PROJECT SCHEDULER by Brannon Francisco M.D.
--- NOTE | 2023-05-22 16:35 | ED.CHESTPAIN ---
HPI - Chest Pain General Chief Complaint: Chest Pain Stated Complaint: chest pain Time Seen by Provider: 05/22/23 15:48 History of Present Illness HPI narrative: 53-year-old male presents to the emergency department for evaluation of left-sided chest pain. Patient has a history of a angio spasm last month. Patient did have angio cath that was negative. Patient reports last night he had an episode of left-sided chest pain that lasted approximately 5 minutes and resolved. Upon arrival to the emergency department patient states that the pain has resolved. Patient denies any illicit drug use including cocaine. Related Data Home Medications Medication Instructions Recorded Confirmed sildenafil 25 mg tablet (Viagra) 25 mg PO DAILY PRN Erectile 04/23/23 04/23/23 Dysfunction Allergies Allergy/AdvReac Type Severity Reaction Status Date / Time No Known Allergies Allergy Verified 04/23/23 12:41 Review of Systems Review of Systems: All systems reviewed & are unremarkable except as noted in HPI and below PMFSH Past Medical History Medical History (Updated 05/23/23 @ 00:00 by Georgiana Hinkle) Erectile dysfunction On Viagra. Social History Social History (Updated 04/24/23 @ 00:26 by Cely Brooke, ACCOUNT REVIEW SPECIALIST) Social History: Currently lives in home, daughter and granddaughter live with him. Surrogate decisionmaker: Jamel Chavarria, brother. Code status: Full code. Smoking status: Never smoker Alcohol intake: current Drinks per week: 14 Substance use: current Substance use type: marijuana Last use: 03-23-2023 Lack of Transportation: No Lack of Food: Never True Current Housing: I Have Housing Concerned About Future Housing: No Difficulty Paying Gas/Electric Bills: No Difficulty Paying for Meds: No Currently Unemployed: No Education: Associate Degree Difficulty w/ Childcare or Family Care: No Spiritual care concerns: No Exam Narrative: APPEARANCE: Well appearing, no pain, no distress, well-nourished. HEAD: normocephalic, atraumatic. EYES: PERRLA/EOMI, conjunctivae clear. NOSE: Normal no drainage EARS:TMS clear with good light reflex. THROAT: Pharynx clear, no exudate. NECK: Supple. No adenopathy, no masses. RESPIRATORY: Airway patent, respirations nonlabored. Clear to auscultation bilaterally, no rales, rhonchi, wheezing. CARDIOVASCULAR: Regular rate and rhythm without murmurs rubs or gallops. ABDOMINAL: Soft, nontender, nondistended, normal bowel sounds MUSCULOSKELETAL: Moves all extremities. Strength/ROM intact, No edema, No calf tenderness. NEURO: Alert. Cranial nerves II through XII intact. grossly intact SKIN: Warm, dry. Normal Color Course Course Emergency Course: 53-year-old male present to the emergency department for chest pain. Patient states the chest pain was very short lasting. Patient is afebrile with no leukocytosis and a stable hemoglobin. No significant abnormalities on his CMP. Patient had negative serial troponins. Chest x-ray showed no acute cardiopulmonary abnormality. EKG showed normal sinus rhythm . Patient was updated on the results of his workup patient was comfortable with plan for discharge and close follow-up. Vital Signs Vital signs: Vital Signs Temperature 97.5 F L 05/22/23 12:39 Pulse Rate 97 05/22/23 12:39 Respiratory Rate 15 05/22/23 12:39 Blood Pressure 148/104 H 05/22/23 12:39 Pulse Oximetry 100 05/22/23 12:39 Oxygen Delivery Room Air 05/22/23 12:39 Temperature 97.5 F L 05/22/23 12:39 Pulse Rate 96 05/22/23 17:10 Respiratory Rate 15 05/22/23 17:10 Blood Pressure 156/89 H 05/22/23 17:10 Pulse Oximetry 98 05/22/23 17:10 Oxygen Delivery Room Air 05/22/23 12:39 MDM - Chest Pain Differential Diagnosis Differential diagnosis: Likely atypical chest pain, st elevation myocardial infarction, costochondritis, chest pain and biliary colic Lab Data Attestation: I reviewed
[2023-05-22 16:48] LABS: Troponin I < 0.012 ng/mL (0.000-0.034)
== END 2023-05-22 17:33 | disposition home or self-care (01) ==
PROVIDERS: Student in an Organized Health Care Education/Training Program; Emergency Provider Emergency Medicine; PCP Physician Assistant
DX: R07.89 Other chest pain (principal)
CPT/HCPCS: 36415; 71046; 80053; 83690; 84484; 85025; 85610; 85730; 93005; 99284